=== PATIENT | female | born 1970 | race Caucasian/White ===

== ENCOUNTER 2019-11-21 14:29 | Inpatient (IN) | payer OTHER ==
[~2019-11-21] VITALS: Ht 157.5 cm; Wt 101.8 kg
[2019-11-21] MEDS ORDERED: NS 1,000 ML IV ONE (15:00)
--- NOTE | 2019-11-21 15:29 | REPVR ---
PROCEDURE INFORMATION: Exam: US Abdomen, Limited; Right Upper Quadrant Exam date and time: 11/21/2019 3:19 PM Age: 49 years old Clinical indication: Abdominal pain; Additional info: Upper abdominal pain into back TECHNIQUE: Imaging protocol: US abdomen. Real time ultrasound with image documentation. Limited exam focused on the right upper quadrant. COMPARISON: No relevant prior studies available. FINDINGS: Liver: No focal mass in the incompletely penetrated liver. Gallbladder: Cholelithiasis and echogenic bile in the gallbladder. Technologist reported positive sonographic Topete sign. Common bile duct: Dilatation of the incompletely visualized proximal common bile duct measuring 11 mm in diameter. Pancreas: No acute sonographic abnormality in the visualized proximal pancreas with partial obscuration of the pancreatic tail by bowel gas. Right kidney: Normal right renal morphology. No hydronephrosis. IMPRESSION: 1. Dilatation of the incompletely visualized proximal common bile duct measuring 11 mm in diameter. 2. Cholelithiasis , echogenic bile, and technologist reported positive sonographic Topete sign. Electronically signed by: Shabbir Reed On 11/21/2019 15:28:58 PM
[2019-11-21] MEDS ORDERED: LEVO112T2 PO (15:37)
[2019-11-21] MEDS ORDERED: LISI10TA4 PO (15:37)
[2019-11-21] MEDS ORDERED: CITA20TA6 PO (15:37)
[2019-11-21 15:48] LABS: BASO % 0.4 % (0.0-1.0); EOS # 0.1 10^3/uL (0.0-0.5); EOS % 0.5 % (0.0-3.0); HEMATOCRIT 41.9 % (36.0-47.0); HEMOGLOBIN 14.1 g/dl (12.0-15.5); LYMPH # 1.9 10^3/uL (1.5-5.0); LYMPH % 17.5 % (24.0-44.0); MEAN CORPUSCULAR HEMOGLOBIN 31.1 pg (27.0-33.0); MEAN CORPUSCULAR HGB CONC 33.7 g/dl (32.0-36.5); MEAN CORPUSCULAR VOLUME 92.3 fl (80.0-96.0); MONO # 0.6 10^3/uL (0.0-0.8); MONO % 5.4 % (0.0-5.0); NEUTROPHILS # 8.2 10^3/uL (1.5-8.5); NEUTROPHILS % 75.6 % (36.0-66.0); PLATELET COUNT, AUTOMATED 243 10^3/uL (150-450); RED BLOOD COUNT 4.54 10^6/uL (4.00-5.40); WHITE BLOOD COUNT 10.8 10^3/uL (4.0-10.0)
[2019-11-21 15:56] LABS: ALBUMIN 3.9 GM/DL (3.2-5.2); ALT/SGPT 26 U/L (12-78); BILIRUBIN,DIRECT < 0.1 MG/DL (0.0-0.2); BILIRUBIN,TOTAL 0.2 MG/DL (0.2-1.0); LIPASE 61 U/L (73-393); TOTAL PROTEIN 7.6 GM/DL (6.4-8.2)
[2019-11-21] MEDS ORDERED: KETOROLAC 30 MG/ML 1ML VIAL IV ONE (16:30)
[2019-11-21] MEDS ORDERED: MORPHINE 4 MG/ML 1ML VIAL/SYRINGE (J2270) IV ONE (16:30)
[2019-11-21] MEDS ORDERED: PIPERACILLIN/TAZOBACTAM SOD 3.375 GM in D5W MINI-BAG PLUS 50 ML IV ONE (16:45)
[2019-11-21 17:04] LABS: CK-MB VALUE MASS < 1.0 NG/ML (<3.6); CPK CREATINE PHOSPHOKINASE 69 U/L (26-192); MB/CK RELATIVE INDEX 1.45 (< OR =4); TROPONIN I < 0.02 NG/ML (< 0.10)
[2019-11-21] MEDS ORDERED: PATIENT COMMENT (17:15)
[2019-11-21] MEDS ORDERED: ESTR2TAB2 PO (17:15)
[2019-11-21] MEDS ORDERED: ALLE180T33 PO (17:15)
[2019-11-21] MEDS ORDERED: PROMETHAZINE INJ 25 MG/ML VIAL (J2550) IV ONE (19:00)
[2019-11-21] MEDS ORDERED: MORPHINE 10MG/0.5ML ORAL CONCENTRATE SOLUTION U/D PO PRN (19:15)
[2019-11-21] MEDS ORDERED: ONDANSETRON 4MG/2ML VIAL IV PRN (19:15)
[2019-11-21] MEDS ORDERED: KETOROLAC 30 MG/ML 1ML VIAL IV PRN (19:15)
[2019-11-21] MEDS ORDERED: PERCOCET 5MG/325MG TAB PO PRN (19:15)
[2019-11-21] MEDS ORDERED: ACETAMINOPHEN TAB 650MG DOSE (2X325MG) PO PRN (19:15)
--- NOTE | 2019-11-21 19:53 | IPNPDOC ---
Text Note Date of Service The patient was seen on 11/21/19. NOTE 49 F with one day history of epigastric and RUQ pain and tenderness over same area on examination as well as mild leukocytosis, normal LFTs, US findings of cholelithiasis, mildly dilated CBD Impression and plans Cholelithiasis, symptoms consistent with acute cholecystitis morbid obesity IV abx plan for laparoscopic cholecystectomy in am repeat LFTs if gets elevated plan for MRCP to rule out CBD stone. dictation # [id number] VS,[place], I+O VSOr[place], I+O Laboratory Tests 11/21/19 15:05 Vital Signs Date Time Temp Pulse Resp B/P (MAP) Pulse Ox O2 Delivery O2 Flow Rate FiO2 11/21/19 18:13 97.7 56 18 140/90 (107) 100 Room Air MARTA MARCUS MD Nov 21, 2019 19:53
[2019-11-21] MEDS ORDERED: ESTR625TA PO (20:47)
[2019-11-21] MEDS ORDERED: LISI-538 PO (20:47)
[2019-11-21] MEDS: LR 1,000 ML IV SCH (21:59)
[2019-11-21 22:00] VITALS: BP 146/85
[2019-11-21] MEDS: PIPERACILLIN/TAZOBACTAM SOD 3.375 GM in D5W MINI-BAG PLUS 50 ML IV SCH (23:22)
[2019-11-22] VITALS (7 sets, daily range): BP systolic 124–137; BP diastolic 78–87
[2019-11-22] MEDS: PIPERACILLIN/TAZOBACTAM SOD 3.375 GM in D5W MINI-BAG PLUS 50 ML IV SCH ×4 (05:30→23:45)
[2019-11-22 06:48] LABS: BASO % 0.3 % (0.0-1.0); EOS % 0.1 % (0.0-3.0); HEMOGLOBIN 12.5 g/dl (12.0-15.5); LYMPH # 1.8 10^3/uL (1.5-5.0); LYMPH % 18.9 % (24.0-44.0); MEAN CORPUSCULAR HEMOGLOBIN 30.3 pg (27.0-33.0); MEAN CORPUSCULAR HGB CONC 32.9 g/dl (32.0-36.5); MEAN CORPUSCULAR VOLUME 92.2 fl (80.0-96.0); MONO # 0.9 10^3/uL (0.0-0.8); MONO % 8.9 % (0.0-5.0); NEUTROPHILS # 6.8 10^3/uL (1.5-8.5); NEUTROPHILS % 71.2 % (36.0-66.0); PLATELET COUNT, AUTOMATED 218 10^3/uL (150-450); RED BLOOD COUNT 4.12 10^6/uL (4.00-5.40); WHITE BLOOD COUNT 9.5 10^3/uL (4.0-10.0)
[2019-11-22 07:16] LABS: ALT/SGPT 59 U/L (12-78); BILIRUBIN,TOTAL 0.5 MG/DL (0.2-1.0); BLOOD UREA NITROGEN 11 MG/DL (7-18); CALCIUM LEVEL 8.8 MG/DL (8.5-10.1); CARBON DIOXIDE LEVEL 28 MEQ/L (21-32); CHLORIDE LEVEL 109 MEQ/L (98-107); CREATININE FOR GFR 0.81 MG/DL (0.55-1.30); GLOMERULAR FILTRATION RATE > 60.0 (>58); GLUCOSE, FASTING 104 MG/DL (70-100); SODIUM LEVEL 144 MEQ/L (136-145); TOTAL PROTEIN 6.2 GM/DL (6.4-8.2)
--- NOTE | 2019-11-22 07:41 | HPE ---
DATE OF ADMISSION: 11/21/2019 CHIEF COMPLAINT: Abdominal pain. HISTORY OF PRESENT ILLNESS: The patient is a 49-year-old female who presented herself to the Emergency Department today with complaints of a one-day history of abdominal pain centered over the right upper quadrant area and epigastric area, radiating to her back. The patient reports she was in her usual state of health. The pain started roughly after dinner last night and persisted through the night. In the morning when she woke up the pain was worse, now radiating to her back area, localizing towards the right upper quadrant area, associated with nausea, no vomiting, no fevers or chills reported. She reports prior episodes of similar symptoms though a lot less in severity which resolved in itself a few weeks back. In the E.R. she was found to be very uncomfortable and was worked up to have evidence of cholelithiasis and cholecystitis. PAST MEDICAL HISTORY: The patient's past medical history includes: 1. Morbid obesity with BMI of 41. 2. Hypertension. 3. History of some sort of uterine tumor, status post hysterectomy. 4. The patient denies any problems with anesthesia. PAST SURGICAL HISTORY: The patient's past surgical history includes: 1. Bilateral breast reduction. 2. Abdominal hysterectomy. 3. Bilateral salpingo-oophorectomy. ALLERGIES: Sulfa. SOCIAL HISTORY: The patient denies smoking, reports occasional alcohol use, denies recreational drug use. REVIEW OF SYSTEMS: The patient reports symptoms are acute for about a one day duration. Denies any ongoing abnormal weight loss, denies fevers or chills. Denies any problems with vision or hearing. Denies any hoarseness of voice or problems with swallowing. Denies any shortness of breath, wheezing, history of sleep apnea. Denies any chest pains or palpitations. Gastrointestinal symptoms enumerated in the HPI. The patient denies any history of hematuria or dysuria. She denies any history of diabetes, heat or cold intolerance. Denies any bleeding or clotting disorders or problems with anesthesia. PHYSICAL EXAMINATION: VITAL SIGNS: In the E.R. on arrival at 14:30 shows a temperature of 98.9, pulse rate of 65, respiratory rate of 20, blood pressure of 188/98, pulse oximetry reading 98% on room air. GENERAL APPEARANCE: The patient is seen laying on her side, look uncomfortable. She is pleasant and cooperative. SKIN: Warm and dry. HEENT: Lips appear dry. Normocephalic and atraumatic. [place] palpebral conjunctivae, anicteric sclerae. NECK: Short and supple. CHEST: No chest wall abnormalities. LUNGS: Normal respiratory effort. Lung sounds are clear to auscultation bilaterally without wheezing. HEART: Rate and rhythm are regular without murmurs. ABDOMEN: Quite obese but remains soft, does not appear to be distended. Main area of tenderness over the epigastric area, less so over the right upper quadrant area with mild guarding, consistent with Topete sign. Nontender in the other parts of the abdomen. EXTREMITIES: No significant extremity edema. LABORATORY STUDIES: White cell count of 10.8, hemoglobin 14.1, hematocrit of 42, platelet count is 243, neutrophils are 76%. LFTs are normal including a total bilirubin of 0.2, AST of 16, ALT of 26. Lipase is 61. IMAGING: She had a gallbladder ultrasound performed which demonstrates presence of cholelithiasis, echogenic bile, and reported positive sonographic Topete sign. Proximal common bile duct though incompletely visualized. IMPRESSION AND PLAN: Cholelithiasis with symptoms consistent with acute cholecystitis. There is concern for the possibility of choledocholithiasis given the dilated common bile duct though her LFTs are normal. 1. The patient will be admitted to the hospital under my service. 2. I would start her on antibiotics. She is started on Zosyn 3.375 grams IV every 6 hours. 3. Tentatively we will plan for a laparoscopic cholecystectomy tomorrow and I did discuss with her the risks and benefits of the procedure. In particular, the risks for bile duct injury which is slightly increased in the presence of acute inflammation, likewise increase incidence of open surgery which due to her morbid obesity puts her at risk for hernia formation and likewise increased pain. 4. I will follow up the LFTs tomorrow. If there is a bump in the LFTs, we will probably do an MRCP first before bringing her to the O.R. to rule out choledocholithiasis. If the liver function tests remain normal, we will go ahead and proceed with the cholecystectomy. CIRILO
[2019-11-22] MEDS: PANTOPRAZOLE 40MG VIAL (C9113 PER 1) IV SCH (07:56)
[2019-11-22] MEDS: ENOXAPARIN 40MG/0.4ML SYRINGE (J1650 PER 10MG) SC SCH (07:56)
[2019-11-22] MEDS: LR 1,000 ML IV SCH ×2 (08:28→11:07)
[2019-11-22] MEDS ORDERED: INFLUENZA QUADRIVALENT PF VACCINE 0.5ML SYRINGE IM ONE (09:00)
--- NOTE | 2019-11-22 09:54 | IPNPDOC ---
Text Note Date of Service The patient was seen on 11/22/19. NOTE Patient more comfortable this morning VS stable, afebrile Comfortable awake, alert, oriented anicteric sclerae abdomen, obese, soft, nondistended, minimally tender at RUQ area labs reviewed normal bilirubin Impression: Acute Cholecystitis Patient scheduled for robotic assisted laparoscopic cholecystectomy today. I discussed with her the details of the procedure, risks and benefits including risks for bleeding, bile duct injury, bile leakage, injury to nearby bowels and blood vessels, possibility of need to convert to open surgery. Expected postoperative course and hospital stay discussed with patient. Consent obtained. VS,Fishbone, I+O VS, Fishbone, I+O Laboratory Tests 11/21/19 15:05 11/22/19 06:13 Vital Signs Date Time Temp Pulse Resp B/P (MAP) Pulse Ox O2 Delivery O2 Flow Rate FiO2 11/22/19 06:00 98.6 84 16 127/85 (99) 96 Room Air I&O- Last 24 Hours up to 6 AM 11/22/19 05:58 Intake Total 0 ml Output Total 0 ml Balance 0 ml MARTA MARCUS MD Nov 22, 2019 09:54
[2019-11-22] MEDS ORDERED: ONDANSETRON 4MG/2ML VIAL As Ordered ONE ×2 (10:55→15:29)
[2019-11-22] MEDS ORDERED: ROCURONIUM BROMIDE 50 MG/5 ML VIAL As Ordered ONE (10:55)
[2019-11-22] MEDS ORDERED: fentaNYL 250 MCG/5 ML INJECTION (J3010) As Ordered ONE (10:55)
[2019-11-22] MEDS ORDERED: propofoL 200 MG/20 ML VIAL As Ordered ONE (10:55)
[2019-11-22] MEDS ORDERED: dexameTHASONE 4 MG/ML 1ML VIAL (J1100 PER 1MG) As Ordered ONE ×2 (10:55→13:41)
[2019-11-22] MEDS ORDERED: LIDOCAINE 2% 100MG/5ML SDV (FOR ANES.) As Ordered ONE (10:55)
[2019-11-22] MEDS ORDERED: MIDAZOLAM INJ 2MG/2ML VIAL (J2250 PER 1MG) As Ordered ONE (10:56)
[2019-11-22] MEDS ORDERED: LIDOCAINE 1% SDV 30ML VIAL As Ordered ONE (12:30)
[2019-11-22] MEDS ORDERED: BUPIVACAINE HCL 0.25% 30ML VIAL As Ordered ONE (12:30)
[2019-11-22] MEDS ORDERED: PHENYLephrine HCL 500 MCG/5 ML (100MCG/ML) SYRINGE (J2370) As Ordered ONE (13:14)
[2019-11-22] MEDS ORDERED: KETOROLAC 60MG 2ML VIAL As Ordered ONE (13:32)
[2019-11-22] MEDS ORDERED: SUGAMMADEX SODIUM 500 MG/5 ML VIAL (BRIDION) As Ordered ONE (13:32)
[2019-11-22] MEDS ORDERED: HYDROmorphone HCL 2 MG/ML 1ML VIAL (J1170) As Ordered ONE (13:32)
[2019-11-22] MEDS ORDERED: ACETAMINOPHEN 1000MG 100ML IV BTL (OFIRMEV) (J0131 PER 10MG) As Ordered ONE (13:32)
[2019-11-22] MEDS ORDERED: FEXOFENADINE 60 MG TAB PO PRN (15:15)
--- NOTE | 2019-11-22 15:34 | POST-OPPD ---
Postoperative Procedure Note Date Of Procedure: Nov 22, 2019 PREOPERATIVE DIAGNOSIS: Acute Cholecystitis POSTOPERATIVE DIAGNOSIS: Acute Cholecystitis FINDINGS: acute over chronic cholecystitis, tensely distended gb PROCEDURE: Robotic Assisted Laparoscopic cholecystectomy SURGEON: Marta Acevedo MD MANAGER QUALITY COMPLIANCE: Melany Voss NP ANESTHESIA: General Anesthesia SPECIMENS: gallbladder ESTIMATED BLOOD LOSS: 40 mLs DRAINS: 19 Shawn Drain dictated [id number] COMPLICATIONS: POSTOPERATIVE CONDITION: MARTA ACEVEDO MD Nov 22, 2019 15:34
[2019-11-22] MEDS ORDERED: fentaNYL 100 MCG/2 ML INJECTION (J3010) As Ordered ONE (15:43)
[2019-11-22] MEDS ORDERED: METOCLOPRAMIDE INJ 10MG/2ML VIAL (J2765 PER 1) As Ordered ONE (15:43)
[2019-11-22] MEDS ORDERED: METOCLOPRAMIDE INJ 10MG/2ML VIAL (J2765 PER 1) IV PRN (15:45)
[2019-11-22] MEDS ORDERED: fentaNYL 100 MCG/2 ML INJECTION (J3010) IV PRN (15:45)
[2019-11-22] MEDS ORDERED: ONDANSETRON 4MG/2ML VIAL IV PRN (15:45)
[2019-11-22] MEDS ORDERED: PERCOCET 5MG/325MG TAB PO PRN (15:45)
[2019-11-22] MEDS ORDERED: LR 1,000 ML IV SCH (15:45)
[2019-11-22] MEDS ORDERED: PROMETHAZINE INJ 25 MG/ML VIAL (J2550) As Ordered ONE (15:59)
[2019-11-22] MEDS ORDERED: PROMETHAZINE INJ 25 MG/ML VIAL (J2550) IV PRN (16:15)
[2019-11-22] MEDS ORDERED: CitaloPRAM (CeleXA) 20 MG TAB PO SCH (21:00)
[2019-11-22] MEDS ORDERED: lisinopriL 20 MG TAB PO SCH (21:00)
[2019-11-22] MEDS: PERCOCET 5MG/325MG TAB PO PRN (23:51)
[2019-11-23 03:30] VITALS: BP 123/71
[2019-11-23] MEDS: PIPERACILLIN/TAZOBACTAM SOD 3.375 GM in D5W MINI-BAG PLUS 50 ML IV SCH ×2 (05:18→11:40)
[2019-11-23] MEDS: PERCOCET 5MG/325MG TAB PO PRN ×3 (05:19→16:48)
[2019-11-23] MEDS ORDERED: LEVOTHYROXINE 112MCG TABLET (0.112MG) PO SCH (06:00)
[2019-11-23 07:07] LABS: BASO % 0.1 % (0.0-1.0); HEMATOCRIT 34.4 % (36.0-47.0); HEMOGLOBIN 11.2 g/dl (12.0-15.5); LYMPH # 1.2 10^3/uL (1.5-5.0); LYMPH % 14.7 % (24.0-44.0); MEAN CORPUSCULAR HEMOGLOBIN 30.3 pg (27.0-33.0); MEAN CORPUSCULAR HGB CONC 32.6 g/dl (32.0-36.5); MONO # 0.7 10^3/uL (0.0-0.8); MONO % 8.2 % (0.0-5.0); NEUTROPHILS # 6.5 10^3/uL (1.5-8.5); NEUTROPHILS % 76.6 % (36.0-66.0); PLATELET COUNT, AUTOMATED 202 10^3/uL (150-450); WHITE BLOOD COUNT 8.5 10^3/uL (4.0-10.0)
[2019-11-23 07:30] VITALS: BP 119/70
[2019-11-23 07:35] LABS: ALBUMIN 2.8 GM/DL (3.2-5.2); ALT/SGPT 171 U/L (12-78); BILIRUBIN,TOTAL 0.7 MG/DL (0.2-1.0); BLOOD UREA NITROGEN 8 MG/DL (7-18); CALCIUM LEVEL 8.3 MG/DL (8.5-10.1); CARBON DIOXIDE LEVEL 26 MEQ/L (21-32); CHLORIDE LEVEL 109 MEQ/L (98-107); CREATININE FOR GFR 0.72 MG/DL (0.55-1.30); GLOMERULAR FILTRATION RATE > 60.0 (>58); GLUCOSE, FASTING 106 MG/DL (70-100); POTASSIUM SERUM 3.6 MEQ/L (3.5-5.1); SODIUM LEVEL 144 MEQ/L (136-145); TOTAL PROTEIN 6.4 GM/DL (6.4-8.2)
[2019-11-23] MEDS: PANTOPRAZOLE 40MG VIAL (C9113 PER 1) IV SCH (08:28)
[2019-11-23] MEDS: ENOXAPARIN 40MG/0.4ML SYRINGE (J1650 PER 10MG) SC SCH (08:28)
[2019-11-23 14:00] VITALS: BP 120/69
[2019-11-23] MEDS ORDERED: CEFD300CAP PO (15:52)
[2019-11-23] MEDS ORDERED: PERCOCET PO (15:52)
--- NOTE | 2019-11-23 15:57 | IPNPDOC ---
Text Note Date of Service The patient was seen on 11/23/19. NOTE POD1 RA laparoscopic cholecystectomy reports mild abdominal pain, feeling tired. Tolerating diet VS stable afebrile Looks comfortable anicteric sclerae, skin warm and dry abdomen: nodistended, soft, port sites x 3, drain site Left abdomen - serosanguenous minimal output. impression Acute Cholecystitis ok to go home PO abx x 5 days follow up in clinic x 2 weeks VS,Fishbone, I+O VS, Fishbone, I+O Laboratory Tests 11/23/19 06:28 Vital Signs Date Time Temp Pulse Resp B/P (MAP) Pulse Ox O2 Delivery O2 Flow Rate FiO2 11/23/19 14:00 98.3 88 18 120/69 (86) 91 Room Air 11/22/19 19:30 2.0 I&O- Last 24 Hours up to 6 AM 11/23/19 06:00 Intake Total 2190 ml Output Total 875 ml Balance 1315 ml MARTA MARCUS MD Nov 23, 2019 15:40
--- NOTE | 2019-12-04 09:06 | ECGEPIP ---
[facility] - ED Test Date: 2019-11-21 Pat Name: MARIO ANDERSON Department: Room: - Gender: Female Building Mechanic: : 1970 Requested By: KIZZY Jeter PA-C Order Number: [id number] Reading MD: Mirna Dudley Measurements Intervals [place] Rate: 54 P: 22 WI: 146 QRS: -14 QRSD: 105 T: 5 QT: 461 QTc: 440 Interpretive Statements SINUS BRADYCARDIA POSSIBLE LEFT VENTRICULAR HYPERTROPHY ABNORMAL ECG SEE SCANNED DOWNTIME REPORT
--- NOTE | 2019-12-14 15:04 | RO ---
DATE OF OPERATION: 11/22/2019 PREOPERATIVE DIAGNOSIS: Cholelithiasis and acute cholecystitis. POSTOPERATIVE DIAGNOSIS: Cholelithiasis and acute cholecystitis. PROCEDURE: Robotic-assisted laparoscopic cholecystectomy with ICG use for biliary tree identification. SURGEON: Shahbaz Acevedo MD ASSIST: Melany Voss NP. Ms. Voss assisted me with placing the ports, management of the instruments on the field while I was at the surgeons console, extraction of the specimen, and closure of ports. ANESTHESIA: General anesthesia. ESTIMATED BLOOD LOSS: Roughly 40 mL. SPECIMENS: Gallbladder. DRAINS: 19 Shawn drain left at the liver bed. OPERATIVE FINDINGS: Markedly distended, thick-walled gallbladder with acute inflammation, gallbladder wall edema consistent with acute/chronic cholecystitis. Enlarged cystic duct with multiple small stone free floating inside of the gallbladder. The cystic artery runs in the subserosal or subperitoneal route. PROCEDURE NOTE: Ms. Hernandez was admitted through the emergency room where she presented with one-day history of severe epigastric and right upper quadrant pain, leukocytosis and evidence for cholelithiasis and cholecystitis on ultrasound. She was started on IV fluids and IV antibiotics. We used Zosyn 3.375 grams IV every 6 hours. I gave her 5 mg of indocyanine green (ICG) with a 10 mL normal saline (NS) flush roughly about three hours prior to the procedure. She was brought to the OR for a cholecystectomy. The patient was brought to the operating room, and placed supine on the table. Compression boots placed on both lower extremities placed for deep vein thrombosis (DVT) prophylaxis. General endotracheal anesthesia started. Her abdomen was then prepped and draped in the usual sterile fashion. A surgical timeout was performed prior to the start of the surgery. I initially tried entry to the left of the umbilicus. Though we could get Veress needle placement confirming ceiling drop technique. On insufflation, we could not get consistent pressure measurements with the pressure bouncing back and forth of negative and positive pressure. I then went over the left midclavicular port line where one of my ports would be again attempted with Veress needle entry here. Still, could not get adequate insufflation. I then decided to use the umbilical port and used a Kii Fios 5 mm port for direct port entry with laparoscopic visualization. Once we entered the abdomen, the abdomen was inflated to a pressure of 15 mmHg. The insertion site in both areas was inspected for injury; none was found. It seems we are subperitoneal on both placements. She was positioned in slight reverse Trendelenburg position, slightly turned towards the left side. The rest of the ports were placed under direct vision including a left midclavicular port, right midclavicular port, and right anterior axillary port following almost a straight line at the level of the umbilicus. The da Fariba robot tower was maneuvered in place and centered to the gallbladder. The instruments were placed under direct vision. I then unscrubbed and took control of the camera and instruments at the surgeons console. I used a 30 mm robotic laparoscope, a ProGrasp retractor, a forced bipolar connected to bipolar cautery and a hook cautery connected to monopolar cautery; switched to [place] instrument connected to bipolar cautery as well as suction device for mostly blunt dissection. The gallbladder was noted to be quite distended tensely. There was some difficulty manipulating this but once we were able to grab this, it was elevated superiorly. Small amounts of omental attachments were easily divided. There was some fluid around the gallbladder consistent with cholecystitis. The thick peritoneal envelopes surrounding the mid body and lower portion of the gallbladder were opened up both medially and laterally to allow us for better manipulation of the gallbladder. As we freed up the peritoneal attachments, we were able to lift the gallbladder up further superiorly exposing the infundibulum. We opened up the peritoneal envelope allowing the infundibulum circumferentially allowing me to dissect at the hepatocystic triangle. While doing this, I noted that the course of the cystic duct was actually more subperitoneal and actually lifted this off the wall of the gallbladder as I was dividing the peritoneum from the gallbladder wall. We were able to circumferentially get around the infundibulum and slowly get around the cystic duct which was enlarged. I was massaging the cystic duct contents to the gallbladder to make sure there were no stones within that area. As the whole area seems inflamed, I only wanted to go just beyond the takeoff of the cystic duct to the gallbladder neck. This was aided with the use of FireFly with initially non-opacification of the gallbladder and then with manipulation of the gallbladder neck eventual opacification of the gallbladder and the cystic duct. I chose a large clip. This was able to encircle the cystic duct and the three clips were placed along the course of the upper cystic duct with the remaining duct and this was divided. As the cystic artery was already divided, I placed a clip at the end of the divided portion of the cystic artery to make sure there was no bleeding. At this point, the gallbladder was prison dissected free from the cystic plate and prior to division of the cystic duct, confirmed critical view safety whereby only the cystic duct could be seen coursing into the gallbladder as the cystic artery, as mentioned, is subperitoneal. At this point, the rest of the gallbladder was freed from the liver bed. Small point bleeding was cauterized. As we were retracting gallbladder, we had spillage of gallbladder contents. This was cleaned up with irrigation. The gallbladder was placed in the Endo Catch bag and retrieved through the right anterior axillary port site which was enlarged. This was then closed intraperitoneally with 2-0 V- Loc in a mattress fashion. After total irrigation and checking for bile leak as well as position of the clips, and when satisfied I had my shipping and receiving assistant thread a 19 Shawn drain through the left midclavicular port and placed this into the liver fossa. The abdomen was then deflated and all ports were removed. The drain was sutured to the skin with 2-0 silk. The remaining skin incisions were closed with 4-0 Monocryl in subcuticular fashion. Dermabond was then used for coverage. The patient was then promptly awakened, extubated, and brought to the recovery room in a stable condition. CIRILO
--- NOTE | 2019-12-20 10:54 | REP ---
CHEST X-RAY: CLINICAL: Lower chest and abdominal pain. TECHNIQUE: PA and lateral COMPARISON: None. FINDINGS: Mediastinum and cardiac silhouette are normal. Lung aguilar are clear. No acute consolidation, effusion or pneumothorax. Skeletal structures are intact. IMPRESSION: Normal chest x-ray. No acute cardiopulmonary process. MTDD
== END 2019-11-23 17:10 | disposition home or self-care (01) | DRG 418 ==
LOC: M ED 14:29 → M ED INP 19:07 → ENRESERV 19:46 → M MS5PR 21:40
PROVIDERS: ADMIT Surgery; ATTEND Surgery
PROC: 8E0W4CZ Robotic Assisted Procedure of Trunk Region, Percutaneous Endoscopic Approach (ICD-10-PCS; 2019-11-22)
PROC: 0FT44ZZ Resection of Gallbladder, Percutaneous Endoscopic Approach (ICD-10-PCS; principal; 2019-11-22 12:15)
DX: K80.00 Calculus of gallbladder with acute cholecystitis without obstruction (principal); Z68.41 Body mass index [BMI] 40.0-44.9, adult; E66.01 Morbid (severe) obesity due to excess calories; I10 Essential (primary) hypertension

== ENCOUNTER 2021-01-22 06:30 | Day surgery (SDC) | payer OTHER ==
[~2021-01-22] VITALS: Ht 157.5 cm; Wt 97.1 kg
[~2021-01-22 06:30] MED LIST: ACETAMINOPHEN 650 MG SUPP PR ONE; ALLE180T33 PO; CEFD300CAP PO; CITA20TA6 PO; ESTR2TAB3 PO; ESTR625TA PO; LEVO112T2 PO; LEVO125T4 PO; LISI10TA22 PO; LISI20TA33 PO; LR 1,000 ML IV ONE; LR 1,000 ML IV SCH; MULT-90 PO; PATIENT COMMENT; PERCOCET PO
--- OUTSIDE RECORDS SUMMARY | 2021-01-22 06:33 | CCD | Continuity of Care Document ---
Author Author Daylin POON F.N.P. Organization Unknown Address [address], [address] [place] [address] Phone [phone] Care Team Providers Care Athletic Shoe Designer Name Role Phone [facility], [facility] [phone] Problems Description No Information Available Social History Type Date Description Comments Sex Unknown Tobacco Use Start: Unknown Never Smoked Cigarettes ETOH Use Social Drinker Sun Exposure moderate amount of sun exposure Sun Exposure Has never used tanning bed Sun Exposure Has experienced blistering from sunburns Sun Exposure Uses > 30 SPF Allergies, Adverse Reactions, Alerts Active Allergies Criticality Reaction | Severity Comments Date sulfa Unable to assess criticality 11/04/2020 Medications Active Medications SIG Qnty Indications Ordering Provide r Date Efudex 5% Cream apply to forehead, bilateral temples, and bilateral cheeks sparingly twice a day 45gm L57.[address] 11/04/2020 Synthroid Unknown Lisinopril Unknown Citalopram Hydrobromide Unknown 0 Estrogen Unknown Immunizations Description No Information Available Vital Signs Date Vital Result Comment 11/07/2020 2:33pm BP Systolic 122 mmHg BP Diastolic 63 mmHg Weight 214.00 lb Respiratory Rate 17 /min 11/04/2020 7:41am BP Systolic 115 mmHg BP Diastolic 76 mmHg Weight 214.00 lb Height 62 inches 5'2" BMI (Body Mass Index) 39.1 kg/m2 Results Test Acquired Date Facility Test Result H/L Range Note [facility] 11/07/2020 [facility] LC Icd9 Code ICD9 Code: D36.1 <SEE NOTE> 1 PDFReport SEE IMAGE [facility] 11/04/2020 [facility] LC Icd9 Code ICD9 Code: L82.1 2 [facility] SEE IMAGE 1 ICD9 Code: D36.11 Protocol: scissors Clinical Text: SKIN TAG Final Diagnosis: NEUROFIBROMA. Gross Text: The specimen grossly was irregular in shape and measured 4 x 4 mm. on the surface and 2 mm. deep. It was divided into 2 sections on the long axis. All of the tissue was submitted for processing. Microscopic Description: There are proliferating short spindle cells in the cutis with neuroid configuration. CPT: 70854*1 2 ICD9 Code: L82.1 Protocol: shave Clinical Text: SK Final Diagnosis: SURFACE OF A TRAUMATIZED VERRUCOID KERATOSIS WITH INTRACORNEAL HEMORRHAGE. Final Diagnosis: Note: The differential diagnosis includes a verruca and a verrucous seborrheic keratosis. Gross Text: The specimen grossly was irregular in shape and measured 5 x 5 mm. on the surface and 1 mm. deep. It was divided into 2 sections on the long axis. All of the tissue was submitted for processing. Microscopic Description: There is epidermal hyperplasia, papillomatosis, and hyperkeratosis. CPT: 85365*1 Procedures Date Code Description Status 11/07/2020 57688 Remove Skin Tags Up To 15 Comple mukesh 11/04/2020 16860 Office/Outpatient New Moderate M DM 45-59 Minutes Completed 11/04/2020 35712 Shave Biopsy Of Skin, Single Les ion Completed Medical Devices Description No Information Available Encounters Type Date Location Provider Dx Diagnosis Office Visit 11/04/2020 7:30a Main Office Lesa Poon, F.N.P. R23.8 Other skin changes D48.5 Neoplasm of uncertain behavi or of skin L57.0 Actinic keratosis D22.5 Melanocytic nevi of trunk D22.62 Melanocytic nevi of left upp er limb, including shoulder D22.61 Melanocytic nevi of right up per limb, including shoulder D22.72 Melanocytic nevi of left low er limb, including hip D22.71 Melanocytic nevi of right lo wer limb, including hip L85.9 Epidermal thickening, unspec ified R20.8 Other disturbances of skin s ensation D18.01 Hemangioma of skin and subcu taneous tissue L81.4 Other melanin hyperpigmentat ion L82.1 Other seborrheic keratosis R23.4 Changes in skin texture Z12.83 Encounter for screening for malignant neoplasm of skin Assessments Date Code Description Provider 11/07/2020 L85.9 Epidermal thickening, unspecifie d Deidre Linares, AGRICULTURAL RESEARCH TECHNICIAN-C 11/07/2020 R20.8 Other disturbances of skin sensa tion Deidre Leblancovern, [facility] 11/04/2020 R23.8 Other skin changes Lesa mosqueda, F.N.P. 11/04/2020 D48.5 Neoplasm of uncertain behavior o f skin Lesa O'neelam, F.N.P. 11/04/2020 L57.0 Actinic keratosis Lesa O'tom christiansonn, F.N.P. 11/04/2020 D22.5 Melanocytic nevi of trunk Cather sandra O'neelam, F.N.P. 11/04/2020 D22.62 Melanocytic nevi of left upper l imb, including shoulder Lesa O'neelam, F.N.P. 11/04/2020 D22.61 Melanocytic nevi of right upper limb, including shoulder Lesa O'neelam, F.N.P. 11/04/2020 D22.72 Melanocytic nevi of left lower l imb, including hip Lesa O'neelam, F.N.P. 11/04/2020 D22.71 Melanocytic nevi of right lower limb, including hip Lesa O'neelam, F.N.P. 11/04/2020 L85.9 Epidermal thickening, unspecifie d Lesa O'neelam, F.N.P. 11/04/2020 R20.8 Other disturbances of skin sensa tion Lesa O'neelam, F.N.P. 11/04/2020 D18.01 Hemangioma of skin and subcutane ous tissue Lesa O'neelam, F.N.P. 11/04/2020 L81.4 Other melanin hyperpigmentation Lesa O'neelam, F.N.P. 11/04/2020 L82.1 Other seborrheic keratosis Jerad Wagner. 11/04/2020 R23.4 Changes in skin texture Jerad Stokes. 11/04/2020 Z12.83 Encounter for screening for sharmin gnant neoplasm of skin [address] Plan of Treatment Future Appointment(s):* 12/24/2020 12:30 pm - SHAYNA Montalvo-C at Main Office * 12/17/2020 1:30 pm - SHAYNA Montalvo-C at Main Office * 12/09/2020 1:00 pm - BENJAMIN Montalvo at Main Office * 12/05/2020 4:00 pm - SHAYNA Garza-C at Main Office * 11/04/2021 9:30 am - [facility] at Main Office 11/07/2020 - SHAYNA Montalvo-Katie* L85.9 Epidermal thickening, unspecified* Comments:* Risk and benefits of procedure discussed . Signed informed consent was obtained from the patient .Verified , name and site. The area of involvement was cleansed with alcohol . 1% Lidocaine HCL with Epinephrine was used for local anesthesia. 1 skin tag was removed from the with gradel scissors The wounds were cleansed and then dressed with a band-aid . Patient tolerated the procedure well. No complications. Patient was given instructions prior to leaving the office. Specimen sent to pathology. * R20.8 Other disturbances of skin sensation* Comments:* See above. * Follow up:* Has appointment - 12/05/20 Efudex Functional Status Description No Information Available Mental Status Description No Information Available Referrals Refer to Reason for Referral Status Appt Date Ann Marie Howe NP Created [address] [place] [address] [phone]
--- OUTSIDE RECORDS SUMMARY | 2021-01-22 06:33 | CCD ---
Author Author [facility] Organization [facility] Address Unknown Phone Unavailable Care Team Providers Care Smocker Name Role Phone Hoagland, Darshana DELI BAKERY CLERK Unavailable Unavailable Hoagland, Darshana DELI BAKERY CLERK Unavailable Unavailable Hoagland, Darshana DELI BAKERY CLERK Unavailable Unavailable Hoagland, Darshana DELI BAKERY CLERK Unavailable Unavailable Hoagland, Darshana DELI BAKERY CLERK Unavailable Unavailable Hoagland, Darshana DELI BAKERY CLERK Unavailable Unavailable Hoagland, Darshana DELI BAKERY CLERK Unavailable Unavailable Hoagland, Darshana DELI BAKERY CLERK Unavailable Unavailable Hoagland, Darshana DELI BAKERY CLERK Unavailable Unavailable Hoagland, Darshana DELI BAKERY CLERK Unavailable Unavailable Hoagland, Darshana DELI BAKERY CLERK Unavailable Unavailable Hoagland, Darshana DELI BAKERY CLERK Unavailable Unavailable Hoagland, Darshana DELI BAKERY CLERK Unavailable Unavailable Hoagland, Darshana DELI BAKERY CLERK Unavailable Unavailable Hoagland, Darshana DELI BAKERY CLERK Unavailable Unavailable Hoagland, Darshana DELI BAKERY CLERK Unavailable Unavailable Hoagland, Darshana DELI BAKERY CLERK Unavailable Unavailable Hoagland, Darshana DELI BAKERY CLERK Unavailable Unavailable Hoagland, Darshana DELI BAKERY CLERK Unavailable Unavailable Hoagland, Darshana DELI BAKERY CLERK Unavailable Unavailable Hoagland, Darshana DELI BAKERY CLERK Unavailable Unavailable Hoagland, Darshana DELI BAKERY CLERK Unavailable Unavailable Hoagland, Darshana DELI BAKERY CLERK Unavailable Unavailable Hoagland, Darshana DELI BAKERY CLERK Unavailable Unavailable Hoagland, Darshana DELI BAKERY CLERK Unavailable Unavailable Hoagland, Peggy Mcfadden DELI BAKERY CLERK Unavailable Unavailable Hoagland, Peggy Mcfadden DELI BAKERY CLERK Unavailable Unavailable Hoagland, Peggy Mcfadden DELI BAKERY CLERK Unavailable Unavailable Hoagland, Peggy Mcfadden DELI BAKERY CLERK Unavailable Unavailable Hoagland, Peggy Mcfadden DELI BAKERY CLERK Unavailable Unavailable Hoagland, Peggy Mcfadden DELI BAKERY CLERK Unavailable Unavailable Hoagland, Peggy Mcfadden DELI BAKERY CLERK Unavailable Unavailable Hoagland, Peggy Mcfadden DELI BAKERY CLERK Unavailable Unavailable Hoagland, Peggy Mcfadden DELI BAKERY CLERK Unavailable Unavailable Hoagland, Peggy Mcfadden DELI BAKERY CLERK Unavailable Unavailable Hoagland, Peggy Mcfadden DELI BAKERY CLERK Unavailable Unavailable ERYN CALLAHAN Unavailable [phone] ERYN CALLAHAN Unavailable [phone] Re-disclosure Warning The records that you are about to access may contain information from federally-assisted alcohol or drug abuse programs. If such information is present, then the following federally mandated warning applies: This information has been disclosed to you from records protected by federal confidentiality rules (42 CFR part 2). The federal rules prohibit you from making any further disclosure of this information unless further disclosure is expressly permitted by the written consent of the person to whom it pertains or as otherwise permitted by 42 CFR part 2. A general authorization for the release of medical or other information is NOT sufficient for this purpose. The Federal rules restrict any use of the information to criminally investigate or prosecute any alcohol or drug abuse patient.The records that you are about to access may contain highly sensitive health information, the redisclosure of which is protected by Article 27-F of the [facility] Public Health law. If you continue you may have access to information: Regarding HIV / AIDS; Provided by facilities licensed or operated by the [facility] Office of Mental Health; or Provided by the [facility] Office for People With Developmental Disabilities. If such information is present, then the following [facility] mandated warning applies: This information has been disclosed to you from confidential records which are protected by state law. State law prohibits you from making any further disclosure of this information without the specific written consent of the person to whom it pertains, or as otherwise permitted by law. Any unauthorized further disclosure in violation of state law may result in a fine or detention sentence or both. A general authorization for the release of medical or other information is NOT sufficient authorization for further disc losure. Encounters Encounter Providers Location Date Indications Data Source(s ) Outpatient Attender: ERYN LONDON Main Office 01/01/2021 04:00:00 P M EDT [facility] ([facility]) Outpatient Attender: Lesa Hoagland DELI BAKERY CLERK Main Office 11/04/2020 07:30:00 AM EDT [facility] ([facility]) Immunizations Vaccine Date Status Description Data Source(s) COVID-19 VACCINE Pfizer 05/21/2020 12:00:00 AM EST completed [facility] Vaccine Series Complete: NOThis Data was Submitted to [facility] Via [employer] Medications Medication Brand Name Start Date Product Form Dose Route Admi nistrative Instructions Pharmacy Instructions Status Indications Reaction Description Data Source(s) Fluorouracil 50 MG/ML Topical Cream [Efudex] Efudex 12:00:00 AM EDT active [facility] ( [facility]) Famotidine 20 MG Oral Tablet [Pepcid] Pepcid 12/12/2019 12:00:00 AM EDT ORAL active [facility] ([facility], ) Insurance Providers Payer name Policy type / Coverage type Policy ID Covered libertarian ID Covered libertarian's relationship to stovall Policy Stov[employer] Plan Information [facility] [id number] [facility] [id number] [facility] O [id number] S [id number] Problems, Conditions, and Diagnoses Code Display Name Description Problem Type Effective Dates Data Source(s) [id number] Essential hypertension Essential hypertension Problem 12/05/2019 12:00:00 AM EDT [facility] ([facility], ) Surgeries/Procedures Procedure Description Date Indications Data Source(s) OFFICE OUTPATIENT VISIT 15 MINUTES 01/01/2021 12:00:00 AM EDT [facility] ([facility]) REMOVAL SKN TAGS GIS MANAGER FIBRQ TAGS ANY AREA UP&W/15 11/07 12:00:00 AM EDT [facility] ([facility]) Shave Biopsy Of Skin, Single Lesion 11/04/2020 12:00:0 0 AM EDT [facility] ([facility]) OFFICE OUTPATIENT NEW 45 MINUTES 11/04/2020 12:00:00 A M EDT [facility] ([facility]) Results ID Date Data Source [id number] 01/17/2021 08:41:00 AM EDT [facility] Name Value Range Interpretation Code Description Data Cookie rce(s) Supporting Document(s) SARS coronavirus 2 RNA Not Detected [facility] [place] This lab was ordered by [facility] and reported by [facility]. ID Date Data Source [id number] 11/07/2020 02:42:00 PM EDT [facility] ([facility]) Name Value Range Interpretation Code Description Data Cookie rce(s) Supporting Document(s) Laboratory test finding (navigational concept) Laboratory test result [facility] ([facility]) No further treatment needed. Patient not ified 11-19-20. Laboratory test finding (navigational concept) Laboratory test result [facility] ([facility]) No further treatment needed. Patient not ified 11-19-20. ID Date Data Source [id number] 11/04/2020 08:13:00 AM EDT [facility] Name Value Range Interpretation Code Description Data Cookie rce(s) Supporting Document(s) Laboratory test finding (navigational concept) Laboratory test result [facility] ([facility]) No further treatment necessary 8-30-21 L M on recorder Laboratory test finding (navigational concept) Laboratory test result [facility] ([facility]) No further treatment necessary 8-30-21 L M on recorder Procedure Social History No Information Vital Signs ID Date Data Source UNK Name Value Range Interpretation Code Description Data Source(s) Systolic blood pressure 132 mm[Hg] 132 mm[Hg] M [facility] ([facility]) Diastolic blood pressure 86 mm[Hg] 86 mm[Hg] [facility] ([facility]) Oxygen saturation in Arterial blood by Pulse oximetry 95 % 95 % [facility] ([facility]) Heart rate 69 /min 69 /min [facility] ([facility]) Systolic blood pressure 124 mm[Hg] 124 mm[Hg] M [facility] ([facility]) Diastolic blood pressure 86 mm[Hg] 86 mm[Hg] [facility] ([facility]) Heart rate 73 /min 73 /min [facility] ([facility]) Body weight 216.00 [lb_av] 216.00 [lb_av] [facility] ([facility]) Systolic blood pressure 122 mm[Hg] 122 mm[Hg] [facility]) Diastolic blood pressure 63 mm[Hg] 63 mm[Hg] [facility] Body weight 214.00 [lb_av] 214.00 [lb_av] [facility] ([facility]) Respiratory rate 17 /min 17 /min [facility] ( [facility]) Systolic blood pressure 115 mm[Hg] 115 mm[Hg] [facility]) Diastolic blood pressure 76 mm[Hg] 76 mm[Hg] [facility]) Body weight 214.00 [lb_av] 214.00 [lb_av] [facility] ([facility]) Body height 62 [in_i] 62 [in_i] [facility] ([facility]) 5'2" Body mass index (BMI) [Ratio] 39.1 kg/m2 39.1 k g/m2 [facility] ([facility]) Body weight 99.055 kg 99.055 kg [facility] ([facility]) Systolic blood pressure 131 mm[Hg] 131 mm[Hg] [facility] ([facility]) Diastolic blood pressure 90 mm[Hg] 90 mm[Hg] [facility] ([facility]) Body height 62 [in_i] 62 [in_i] [facility] ([facility]) 5'2" Body weight 218.38 [lb_av] 218.38 [lb_av] [facility] ([facility]) Body mass index (BMI) [Ratio] 39.9 kg/m2 39.9 k g/m2 [facility])
--- OUTSIDE RECORDS SUMMARY | 2021-01-22 06:33 | CCD | Continuity of Care Document ---
Author Author Daylin CALLAHAN MANUFACTURING SUPERVISOR-C Organization Unknown Address [address], [address] [place] [address] Phone [phone] Care Team Providers Care Quarter Section Ironer Name Role Phone Clinic, Spencer JOSÉ MIGUEL [phone] Problems Description No Information Available Social History Type Date Description Comments Sex Unknown Tobacco Use Start: Unknown Never Smoked Cigarettes ETOH Use Social Drinker Sun Exposure moderate amount of sun exposure Sun Exposure Has never used tanning bed Sun Exposure Has experienced blistering from sunburns Sun Exposure Uses > 30 SPF Allergies and adverse reactions Active Allergies Criticality Reaction | Severity Comments [...] Available Vital Signs Date Vital Result Comment 01/08/2021 3:55pm BP Systolic 132 mmHg BP Diastolic 86 mmHg O2 % BldC Oximetry 95 % Heart Rate 69 /min 01/01/2021 3:48pm BP Systolic 124 mmHg BP Diastolic 86 mmHg Heart Rate 73 /min Weight 216.00 lb Results Test Acquired Date Facility Test Result H/L Range Note [facility] Pathology 11/07/2020 [facility] L LC Icd9 Code ICD9 Code: D36.1 <SEE NOTE> 1, 2 PDFReport SEE IMAGE [facility] Pathology 11/04/2020 [facility] L LC Icd9 Code ICD9 Code: L82.1 3, 4 PDFReport SEE IMAGE 1 No further treatment needed. Patient notified 11-19-20. 2 ICD9 Code: D36.11 Protocol: scissors Clinical Text: [...] in the cutis with neuroid configuration. CPT: 24264*1 3 No further treatment necessa ry 11-18-20 LM on recorder 4 ICD9 Code: L82.1 Protocol: shave Clinical Text: [...] is epidermal hyperplasia, papillomatosis, and hyperkeratosis. CPT: 12414*1 Procedures Date Code Description Status 01/01/2021 21119 Office/Outpatient Established Lo w MDM 20-29 Min Completed 11/07/2020 67247 Remove Skin Tags Up To 15 Comple mukesh 11/04/2020 16358 Office/Outpatient New Moderate M DM 45-59 Minutes Completed 11/04/2020 59901 Shave Biopsy Of Skin, Single Les ion Completed Medical Devices Description No Information Available Encounters Type Date Location Provider Dx Diagnosis Office Visit 01/01/2021 4:00p Main Office BENJAMIN Montalvo L57. 0 Actinic keratosis Office Visit 11/04/2020 7:30a Main Office [address].Red.Manny R23.8 Other skin changes D48.5 Neoplasm of [...] of skin Assessments Date Code Description Provider 01/08/2021 L57.0 Actinic keratosis Deidre Callahan [facility] 01/01/2021 L57.0 Actinic keratosis Lesa arambula, F.N.P. 01/01/2021 L57.0 Actinic keratosis Deidre Callahan [facility] 11/07/2020 L85.9 Epidermal thickening, unspecifie d Lesa Purdy'neelam, F.N.P. 11/07/2020 L85.9 Epidermal thickening, unspecifie d Deidre Callahan [facility] 11/07/2020 R20.8 Other disturbances of skin sensa tion Lesa Purdy'neelam, F.N.P. 11/07/2020 R20.8 Other disturbances of skin sensa tion Deidre Callahan [facility] 11/04/2020 R23.8 Other skin changes Lesa mosqueda, F.N.P. 11/04/2020 D48.5 Neoplasm of uncertain behavior o f skin Lesa Purdy'neelam, F.N.P. 11/04/2020 L57.0 Actinic keratosis Lesa Pedersonbr ien, F.N.P. 11/04/2020 D22.5 Melanocytic nevi of trunk Marquez Purdy'neelam, F.N.P. 11/04/2020 D22.62 Melanocytic nevi of left upper l imb, including shoulder Lesa Purdy'neelam, F.N.P. 11/04/2020 D22.61 Melanocytic nevi of right upper limb, including shoulder Lesa Purdy'neelam, F.N.P. 11/04/2020 D22.72 Melanocytic nevi of left lower l imb, including hip Lesa Purdy'neelam, F.N.P. 11/04/2020 D22.71 Melanocytic nevi of right lower limb, including hip Lesa Purdy'neelam, F.N.P. 11/04/2020 L85.9 Epidermal thickening, unspecifie d Lesa Benoit, F.N.P. 11/04/2020 R20.8 Other disturbances of skin sensa tion Lesa Benoit, F.N.P. 11/04/2020 D18.01 Hemangioma of skin and subcutane ous tissue Lesa Benoit, F.N.P. 11/04/2020 L81.4 Other melanin hyperpigmentation Lesa Benoit, F.N.P. 11/04/2020 L82.1 Other seborrheic keratosis Elizabeth Benoit, F.N.P. 11/04/2020 R23.4 Changes in skin texture Fanny Benoit, F.N.P. 11/04/2020 Z12.83 Encounter for screening for sharmin gnant neoplasm of skin Haleigh StreetN.P. Plan of Treatment Future Appointment(s):* 04/03/2021 3:30 pm - BENJAMIN Montalvo at Main Office * 01/15/2021 4:00 pm - BENJAMIN Montalvo at Main Office * 11/04/2021 9:30 am - [facility] at Main Office 01/08/2021 - BENJAMIN Montalvo* L57.0 Actinic keratosis* Comments:* Great response to Efudex - Looks great.Continue Efudex BID on forehead, temples, cheeks and upper lip 2-3 more days then discontinue. Knows side effects include infection at site of application, headache, flu-like symptoms. Knows to wash hands after applying Efudex. Continue Aquaphor PRN for comfort measures during healing process.Call with any problems. * Follow up:* 12 weeks - Efudex follow up. Cancel next week appointment Functional Status Description No Information Available Mental Status Description No Information Available Referrals Refer to Reason for Referral Status Appt Date Ann Marie Howe NP Created [address], [address] [place] [address] [phone]"
--- OUTSIDE RECORDS SUMMARY | 2021-01-22 06:33 | CCD | Continuity of Care Document ---
Author Author Daylin POON F.N.P. Organization Unknown Address [address] [place] [address] Phone [phone] Care Team Providers Care Pulp Mixer Name Role Phone Clinic, Johanna VALDEZ [phone] Problems Description No Information Available Social History [...] L LC Icd9 Code ICD9 Code: L82.1 2, 3 PDFReport SEE IMAGE 1 ICD9 Code: D36.11 [...] in the cutis with neuroid configuration. CPT: 86186*1 2 No further treatment necessa ry 11-18-20 LM on recorder 3 ICD9 Code: L82.1 Protocol: shave Clinical Text: [...] is epidermal hyperplasia, papillomatosis, and hyperkeratosis. CPT: 23771*1 Procedures Date Code Description Status 11/07/2020 92744 Remove Skin Tags Up To 15 Comple mukesh 11/04/2020 48569 Office/Outpatient New Moderate M DM 45-59 Minutes Completed 11/04/2020 16674 Shave Biopsy Of Skin, Single Les ion [...] 11/07/2020 L85.9 Epidermal thickening, unspecifie d Deidre Leblancovern, [facility] 11/07/2020 R20.8 Other disturbances of skin sensa tion Deidre Vijay, [facility] 11/04/2020 R23.8 Other skin changes Lesa mosqueda, F.N.P. 11/04/2020 D48.5 Neoplasm of uncertain behavior o f skin Lesa O'neelam, F.N.P. 11/04/2020 L57.0 Actinic keratosis Lesa Purdy'tom arambula, F.N.P. 11/04/2020 D22.5 Melanocytic nevi of trunk [...] F.N.P. 11/04/2020 L81.4 Other melanin hyperpigmentation Lesa OHaleigh schwartzN.P. 11/04/2020 L82.1 Other seborrheic keratosis James WagnerP. 11/04/2020 R23.4 Changes in skin texture Jerad Stokes. 11/04/2020 Z12.83 Encounter for screening for sharmin gnant neoplasm of skin [address] Plan of Treatment Future Appointment(s):* 12/24/2020 12:30 pm - Deidre Linares MAIL PROCESSING ASSOCIATE-C at Main Office * 12/17/2020 1:30 pm - SHAYNA Montalvo-C at Main Office * 12/09/2020 1:00 pm - SHAYNA Montalvo-C at Main Office * 12/05/2020 4:00 pm - SHAYNA Garza-C at Main Office * 11/04/2021 9:30 am - [address] at Main Office 11/07/2020 - KEON MontalvoP-C* L85.9 Epidermal thickening, unspecified* Comments:* Risk and [...] Date Ann Marie Howe NP Created [address], [address] [place] [address] [phone]
--- OUTSIDE RECORDS SUMMARY | 2021-01-22 06:33 | CCD | Continuity of Care Document ---
Author Author Daylin CALLAHAN GROCERY STORE ASSOCIATE-C Organization Unknown Address [address], [address] [place] [address] Phone [phone] Care Team Providers Care Pheresis Nurse Name Role Phone Clinic, Johanna JOSÉ MIGUEL [phone] Problems Description No Information Available Social History [...] cheeks sparingly twice a day 45gm L57.0 Lesa Benoit, Blake.N.P. 11/04/2020 Synthroid Unknown Lisinopril Unknown Citalopram Hydrobromide [...] in the cutis with neuroid configuration. CPT: 04317*1 3 No further treatment necessa ry 11-18-20 [...] is epidermal hyperplasia, papillomatosis, and hyperkeratosis. CPT: 16788*1 Procedures Date Code Description Status 11/07/2020 60936 Remove Skin Tags Up To 15 Comple mukesh 11/04/2020 16921 Office/Outpatient New Moderate M DM 45-59 Minutes Completed 11/04/2020 46380 Shave Biopsy Of Skin, Single Les ion Completed Medical Devices Description No Information Available Encounters Type Date Location Provider Dx Diagnosis Office Visit 11/04/2020 7:30a Main Office [address] R23.8 Other skin changes D48.5 Neoplasm of [...] Provider 11/07/2020 L85.9 Epidermal thickening, unspecifie d Lesa Purdy'neelam, F.N.P. 11/07/2020 L85.9 Epidermal thickening, unspecifie d Deidre Callahan, [facility] 11/07/2020 R20.8 Other disturbances of skin sensa tion Lesa O'neelam, F.N.P. 11/07/2020 R20.8 Other disturbances of skin sensa tion Diedre Callahan, [facility] 11/04/2020 R23.8 Other skin changes Lesa mosqueda, F.N.P. 11/04/2020 D48.5 Neoplasm of uncertain behavior o f skin Lesa O'neelam, F.N.P. 11/04/2020 L57.0 Actinic keratosis Lesa arambula, F.N.P. 11/04/2020 D22.5 Melanocytic nevi of [...] 11/04/2020 L85.9 Epidermal thickening, unspecifie d Lesa Purdy'neelam, F.N.P. 11/04/2020 R20.8 Other disturbances of skin sensa tion Haleigh StreetN.Manny 11/04/2020 D18.01 Hemangioma of skin and subcutane ous tissue Haleigh StreetN.P. 11/04/2020 L81.4 Other melanin hyperpigmentation Haleigh StreetNJunePJune 11/04/2020 L82.1 Other seborrheic keratosis Haleigh WagnerN.PJune 11/04/2020 R23.4 Changes in skin texture Haleigh StokesNKarma 11/04/2020 Z12.83 Encounter for screening for sharmin gnant neoplasm of skin [address] Plan of Treatment Future Appointment(s):* 01/15/2021 4:00 pm - BENJAMIN Montalvo at Main Office * 01/08/2021 4:00 pm - BENJAMIN Montalvo at Main Office * 01/01/2021 4:00 pm - BENJAMIN Montalvo at Main Office * 11/04/2021 9:30 am - [address] at Main Office 11/07/2020 - BENJAMIN Montalvo* L85.9 Epidermal thickening, unspecified* Comments:* Risk and [...] Date Ann Marie Howe NP Created [address] [place] [address] [phone]
[2021-01-22 07:01] LABS: HEMATOCRIT 45.8 % (36.0-47.0); HEMOGLOBIN 15.3 g/dl (12.0-15.5); MEAN CORPUSCULAR HEMOGLOBIN 30.4 pg (27.0-33.0); MEAN CORPUSCULAR HGB CONC 33.4 g/dl (32.0-36.5); MEAN CORPUSCULAR VOLUME 91.1 fl (80.0-96.0); PLATELET COUNT, AUTOMATED 279 10^3/uL (150-450); RED BLOOD COUNT 5.03 10^6/uL (4.00-5.40); WHITE BLOOD COUNT 4.7 10^3/uL (4.0-10.0)
[2021-01-22] MEDS ORDERED: ONDANSETRON 4MG/2ML VIAL As Ordered ONE (07:14)
[2021-01-22] MEDS ORDERED: MIDAZOLAM INJ 2MG/2ML VIAL (J2250 PER 1MG) As Ordered ONE (07:14)
[2021-01-22] MEDS ORDERED: LIDOCAINE 2% 100MG/5ML SDV (FOR ANES.) As Ordered ONE (07:14)
[2021-01-22] MEDS ORDERED: fentaNYL 100 MCG/2 ML INJECTION (J3010) As Ordered ONE (07:14)
[2021-01-22] MEDS ORDERED: propofoL 200 MG/20 ML VIAL As Ordered ONE ×2 (07:14→08:48)
[2021-01-22] MEDS ORDERED: dexameTHASONE 4 MG/ML 1ML VIAL (J1100 PER 1MG) As Ordered ONE (07:14)
[2021-01-22] MEDS ORDERED: SCOPOLAMINE 1MG TRANSDERMAL PATCH TOP ONE (07:15)
[2021-01-22] MEDS ORDERED: ACETAMINOPHEN 650 MG SUPP As Ordered ONE (07:18)
[2021-01-22] MEDS ORDERED: METOCLOPRAMIDE INJ 10MG/2ML VIAL (J2765 PER 1) As Ordered ONE (07:35)
[2021-01-22] MEDS ORDERED: KETOROLAC 60MG 2ML VIAL As Ordered ONE (07:35)
[2021-01-22 07:43] LABS: BLOOD UREA NITROGEN 9 MG/DL (7-18); CALCIUM LEVEL 9.2 MG/DL (8.5-10.1); CARBON DIOXIDE LEVEL 26 MEQ/L (21-32); CHLORIDE LEVEL 108 MEQ/L (98-107); CREATININE FOR GFR 0.94 MG/DL (0.55-1.30); GLOMERULAR FILTRATION RATE > 60.0 (>58); GLUCOSE, FASTING 108 MG/DL (70-100); POTASSIUM SERUM 3.9 MEQ/L (3.5-5.1); SODIUM LEVEL 137 MEQ/L (136-145); THYROXINE (T4) 10.2 UG/DL (4.5-12.0)
[2021-01-22] MEDS ORDERED: LR 1,000 ML IV SCH (09:30)
[2021-01-22] MEDS ORDERED: HYDROMORPHONE HCL 0.5 MG/ 0.5 ML SYRINGE (J1170 PER 1) IV PRN (09:30)
[2021-01-22] MEDS ORDERED: oxyCODONE 5MG TAB PO PRN (09:30)
[2021-01-22] MEDS ORDERED: fentaNYL 100 MCG/2 ML INJECTION (J3010) IV PRN (09:30)
[2021-01-22] MEDS ORDERED: ONDANSETRON 4MG/2ML VIAL IV PRN (09:30)
[2021-01-22 10:30] VITALS: BP 125/77
--- NOTE | 2021-01-31 09:48 | RO ---
OPERATIVE NOTE DATE OF OPERATION: 01/22/2021 PREOPERATIVE DIAGNOSIS: Postcoital bleeding, vaginal wall mass. Pap smear screening. POSTOPERATIVE DIAGNOSIS: Postcoital bleeding, vaginal wall mass. Pap smear screening. OPERATION PROPOSED: EUA, excision of vaginal mass and Pap smear. SURGEON: PATRICK PARIS MD AUTOMOTIVE INTERNET SALES MANAGER: Dr. eDras for extraction, retraction and visualization of which this patient's surgery could not be completed. ANESTHESIA: General. ESTIMATED BLOOD LOSS: Less than 10 ml. DESCRIPTION OF PROCEDURE: After adequate time out, prepped and draped in the lithotomy position, sequentials in place, an acetaminophen suppository 1300 mg per rectum, a weighted speculum was in the vagina and lateral wall retractors by Dr. Deras in order to be visualize this large mass. This patient did have a previous subtotal hysterectomy with cervix in place because of Stage IV endometriosis. We were able to eventually visualize the cervix which was high anterior and a Pap smear was performed with HPV reflex testing. After which time we saw this mass which was on the posterior wall of the vaginal, it appeared to be at the 6 o'clock position based on the cervical location. With some difficulty, we were able to excise the mass which caused some bleeding, it was sent off to pathology under separate cover and we re-sutured that area with a Vicryl 2-0 on a J339. We placed interrupted sutures until we were able to secure hemostasis. After which time we irrigated out the vagina and made sure that there was no extra bleeding. With instrument and pack counts correct, we did an EUA examination, again the cervix was noted to be fixed and unless there is some issue, would not recommend that she have a trachelectomy in order to remove the cervix because of the greater risk of damage to bowel, bladder, ureters and all other structures surrounding the cervix. However, if that were to be necessary, we could do a laparoscopic direct vision while going below and excising the cervical mass. With instrument and pack counts correct, we had emptied the bladder of 100 ml of clear urine and the patient was sent to Recovery in good condition. cc: [place] [facility]
== END 2021-01-22 10:37 | disposition home or self-care (01) ==
LOC: M OROP 06:30 → EDSTATUS 07:30 → M OROP 10:37
PROVIDERS: ATTEND Obstetrics & Gynecology
DX: N84.2 Polyp of vagina (principal); Z12.4 Encounter for screening for malignant neoplasm of cervix; I10 Essential (primary) hypertension; E03.9 Hypothyroidism, unspecified; K21.9 Gastro-esophageal reflux disease without esophagitis; D64.9 Anemia, unspecified; F41.9 Anxiety disorder, unspecified; J45.909 Unspecified asthma, uncomplicated; E66.9 Obesity, unspecified; Z68.39 Body mass index [BMI] 39.0-39.9, adult; Z90.710 Acquired absence of both cervix and uterus; Z88.2 Allergy status to sulfonamides; Z79.899 Other long term (current) drug therapy
CPT/HCPCS: 36415; 57135; 57410; 80048; 81025; 84436; 84443; 85027; 88305; 88342; G0123; J1100; J1885; J2250; J2405; J2765; J3010

== ENCOUNTER → 2022-09-03 | Outpatient (REF) | payer OTHER ==
[~2022-09-03] MED LIST changes: -ACETAMINOPHEN 650 MG SUPP PR ONE; -LR 1,000 ML IV ONE; -LR 1,000 ML IV SCH
== END ==
LOC: M LAB REF 16:01
PROVIDERS: ATTEND Nurse Practitioner Family
DX: R30.0 Dysuria (principal); N39.0 Urinary tract infection, site not specified

== ENCOUNTER → 2022-11-25 | Outpatient (CLI) | payer OTHER ==
[2022-11-25 13:47] LABS: BASO % 0.7 % (0.0-1.0); EOS # 0.1 10^3/uL (0.0-0.5); EOS % 1.6 % (0.0-3.0); HEMATOCRIT 43.2 % (36.0-47.0); HEMOGLOBIN 14.2 g/dl (12.0-15.5); LYMPH # 1.8 10^3/uL (1.5-5.0); LYMPH % 30.9 % (24.0-44.0); MEAN CORPUSCULAR HEMOGLOBIN 30.5 pg (27.0-33.0); MEAN CORPUSCULAR HGB CONC 32.9 g/dl (32.0-36.5); MEAN CORPUSCULAR VOLUME 92.9 fl (80.0-96.0); MONO # 0.5 10^3/uL (0.0-0.8); MONO % 8.8 % (2.0-8.0); NEUTROPHILS # 3.3 10^3/uL (1.5-8.5); NEUTROPHILS % 57.6 % (36.0-66.0); PLATELET COUNT, AUTOMATED 236 10^3/uL (150-450); RED BLOOD COUNT 4.65 10^6/uL (4.00-5.40); WHITE BLOOD COUNT 5.7 10^3/uL (4.0-10.0)
[2022-11-25 13:52] LABS: ALBUMIN 3.8 G/DL (3.2-5.2); ALKALINE PHOSPHATASE 87 U/L (46-116); ALT/SGPT 21 U/L (7.0-40); AST/SGOT 12 U/L (<34); BILIRUBIN,TOTAL 0.5 MG/DL (0.3-1.2); BLOOD UREA NITROGEN 16 MG/DL (9-23); CALCIUM LEVEL 9.1 MG/DL (8.5-10.1); CARBON DIOXIDE LEVEL 29 MMOL/L (20-31); CHLORIDE LEVEL 106 MMOL/L (98-107); CHOLESTEROL LEVEL 254 MG/DL (<200); CREATININE FOR GFR 0.75 MG/DL (0.55-1.30); FREE T4 1.13 NG/DL (0.89-1.76); GLOMERULAR FILTRATION RATE > 60.0 (>51); GLUCOSE, FASTING 95 MG/DL (60-100); HDL CHOLESTEROL 70.5 MG/DL (>40); LDL CHOLESTEROL 159.3 MG/DL (<100); NON-HDL-C 183.5 MG/DL; POTASSIUM SERUM 4.2 MMOL/L (3.5-5.1); SODIUM LEVEL 140 MMOL/L (136-145); THYROID STIMULATING HORMONE 4.311 uIU/ML (0.55-4.78); TOTAL PROTEIN 7.4 G/DL (5.7-8.2); TRIGLYCERIDES LEVEL 121 MG/DL (<150)
== END ==
LOC: M WUC 09:47
PROVIDERS: ATTEND Nurse Practitioner Adult Health
DX: I10 Essential (primary) hypertension (principal); E03.9 Hypothyroidism, unspecified; Z13.220 Encounter for screening for lipoid disorders